=== PATIENT | male | born 1980 | race Caucasian/White ===

== ENCOUNTER 2020-05-20 03:06 | Emergency (ER) | payer MEDICAID ==
[~2020-05-20] VITALS: Ht 170.2 cm; Wt 69.0 kg
[2020-05-20] MEDS ORDERED: HYDROCODONE/ACETAMINOPHEN 10/325MG TABLET PO ONE (03:30)
[2020-05-20] MEDS ORDERED: VANCOMYCIN 1 G PREMIX 200 ML IV SCH (03:45)
[2020-05-20] MEDS ORDERED: MORPHINE SULFATE 4 MG/ML CPJ (NOT FOR IM USE) IV ONE ×2 (04:00→04:30)
[2020-05-20] MEDS ORDERED: PIPERACILLIN/TAZOBACTAM 3.375GM/50ML PREMIX IV SCH (04:00)
[2020-05-20] MEDS ORDERED: DIPHENHYDRAMINE 50MG/ML VIAL IV ONE (04:30)
[2020-05-20 04:38] VITALS: BP 128/76
[2020-05-20 04:38] LABS: HEMATOCRIT 38.7 % (42.0-52.0); MEAN CORPUSCULAR HEMOGLOBIN 29.6 pg (28.0-32.0); MEAN CORPUSCULAR VOLUME 88.4 fL (80.0-94.0); PLATELET 394 x1000/uL (130-400); RED BLOOD CELL COUNT 4.38 mill/uL (4.7-6.1); RED CELL DISTRIBUTION WIDTH 14.9 % (11.6-14.6)
[2020-05-20 04:43] LABS: CHLORIDE 105 mEq/L (98-107)
== END 2020-05-20 07:00 | disposition left against medical advice (07) ==
LOC: ER 03:17
DX: M65.9 Synovitis and tenosynovitis, unspecified (principal); F15.10 Other stimulant abuse, uncomplicated; M79.645 Pain in left finger(s)
CPT/HCPCS: 36415; 80053; 83605; 84145; 85027; 87040; 96365; 96367; 96375; 96376; 99284; J1200; J2270; J2543; J3370; Z7610